=== PATIENT | female | born 1945 | race American Indian/Alaskan Native ===

== ENCOUNTER 2017-01-28 08:29 | Outpatient (CLI) | payer MEDICARE, OTHER ==
--- NOTE | 2017-01-28 09:09 | Mammography Report ---
Bilateral digital screening mammogram with CAD. Comparison study is dated January 12, 2016. Findings: The overall pattern is stable. A single biopsy clip is seen in the upper-outer right breast. Benign calcifications in the medial left breast are stable. No suspicious microcalcifications or architectural distortion. Impression: Stable benign findings. BI-RADS code: 2. Recommendation: Annual screening.
== END 2017-01-28 08:30 | disposition home or self-care (01) ==
LOC: MAMMO 08:29
PROVIDERS: ATTEND Family Medicine Adult Medicine
DX: Z12.31 Encounter for screening mammogram for malignant neoplasm of breast (principal)
CPT/HCPCS: 77067; G0202

== ENCOUNTER 2017-08-25 06:29 | Day surgery (SDC) | payer MEDICARE, OTHER ==
[2017-08-25] MEDS ORDERED: NACL 0.9% 500 ML 500 ML IV SCH (07:00)
[2017-08-25 07:34] LABS: Basophils % (Auto) 0.4 % (0.0-1.8); Eosinophils % (Auto) 0.8 % (0.0-4.3); Hematocrit 24.1 % (30.3-42.9); Hemoglobin 7.5 gm/dl (10.1-14.3); Mean Corpuscular HGB Conc 31 % (30-34); Platelet Count 340 K/mm3 (140-440); Red Blood Count 4.15 M/mm3 (3.65-5.03)
[2017-08-25 07:41] LABS: INR 0.99 (0.87-1.13)
[2017-08-25 07:44] LABS: Anion Gap 15 mmol/L; BUN/Creatinine Ratio 12; Blood Urea Nitrogen 7 mg/dL (7-17); Carbon Dioxide 30 mmol/L (22-30); Chloride 100.9 mmol/L (98-107); Glucose 124 mg/dL (65-100); Potassium 3.6 mmol/L (3.6-5.0); Sodium 142 mmol/L (137-145)
[2017-08-25 07:47] LABS: Mean Corpuscular Hemoglobin 18 pg (28-32); Mean Corpuscular Volume 58 fl (79-97); Red Cell Distribution Width 21.4 % (13.2-15.2)
[2017-08-25] MEDS ORDERED: XYLOCAINE 2% INFILTRATI ONE (08:33)
[2017-08-25] MEDS ORDERED: NITROGLYCERIN SYRINGE 3 ML ONE (08:33)
[2017-08-25] MEDS ORDERED: HEPARIN/NS 5000 UNIT/500ML(CATH LAB) 1,000 ML IR ONE (08:33)
[2017-08-25] MEDS ORDERED: CALAN ONE (08:33)
[2017-08-25] MEDS ORDERED: HEPARIN 10,000 UNITS/10 ML ONE (08:33)
[2017-08-25] MEDS ORDERED: SUBLIMAZE ONE (08:34)
[2017-08-25] MEDS ORDERED: VERSED ONE (08:34)
[2017-08-25] MEDS ORDERED: LASIX ONE (09:14)
--- NOTE | 2017-08-25 09:35 | Short Stay Summary ---
Short Stay Documentation Date of service: 08/25/17 - History H&P: obtained from office - Allergies and Medications Current Medications: Allergies codeine Adverse Reaction (Severe, Verified 08/25/17 07:09) DIZZINESS, DISORIENTED, Tegaderm Allergy (Intermediate, Uncoded 08/25/17 07:09) Rash Home Medications Medication Instructions Recorded Confirmed Last Taken Type Furosemide [Lasix TAB] 40 mg PO BID 06/22/15 08/25/17 08/24/17 History Lisinopril [Zestril TAB] 40 mg PO QDAY 06/22/15 08/25/17 08/24/17 History Timolol 0.5% [Timoptic] 1 drop OU QAM 06/22/15 08/25/17 08/24/17 History Aspirin EC [Aspirin Enteric Coated 325 mg PO QDAY 08/01/15 08/25/17 08/25/17 07: 20 History TAB] Atenolol [Tenormin] 50 mg PO DAILY 08/01/15 08/25/17 08/24/17 History ISOSORBIDE MONOnitrate [Imdur ER] 60 mg PO DAILY 08/01/15 08/25/17 08/24/17 History Potassium Chloride [Klor-Con M15] 20 meq PO BID 08/01/15 08/25/17 08/24/17 History AtorvaSTATin [Lipitor] 40 mg PO QHS 08/25/17 08/25/17 08/24/17 History Gabapentin [Neurontin] 300 mg PO HS 08/25/17 08/25/17 08/24/17 History Ranolazine ER [Ranexa ER] 500 mg PO BID 08/25/17 08/25/17 08/24/17 History Active Medications Sodium Chloride (Nacl 0.9% 500 Ml) 500 mls @ 50 mls/hr IV DIRECT MALCOM Stop: 08/25/17 16:59 Last Admin: 08/25/17 08:26 Dose: 50 mls/hr - Brief post op/procedure progress note Date of procedure: 08/25/17 Pre-op diagnosis: sob Post-op diagnosis: same Procedure: see report Anesthesia: local Estimated blood loss: none Pathology: none - Disposition Condition at discharge: Good Disposition: DC-01 TO HOME OR SELFCARE - Discharge Diagnoses (1) Anemia Status: Acute Qualifiers: Anemia type: iron deficiency Iron deficiency anemia type: chronic blood loss Qualified Code(s): D50.0 - Iron deficiency anemia secondary to blood loss (chronic) (2) CAD (coronary artery disease) Status: Chronic Qualifiers: Coronary Disease-Associated Artery/Lesion type: [place] artery [place] vs. transplanted heart: [place] heart Associated angina: with stable angina Qualified Code(s): I25.118 - Atherosclerotic heart disease of [place] coronary artery with other forms of angina pectoris (3) Hyperlipemia Status: Chronic (4) Hypertension Status: Chronic Qualifiers: Hypertension type: essential hypertension Qualified Code(s): I10 - Essential (primary) hypertension (5) SOB (shortness of breath) Status: Chronic Short Stay Discharge Plan Activity: advance as tolerated Diet: low fat, low cholesterol, low salt Wound: keep clean and dry Follow up with: ALYSSA REDDING MD [Primary Care Provider] - 7 Days
--- NOTE | 2017-08-25 12:58 | Cardiac Catherization Report ---
LEFT HEART CATHETERIZATION ORDERING PHYSICIAN: ____. PRIMARY CARE PHYSICIAN: Dr. Salty Anaya. CLINICAL INFORMATION: A 72-year-old female with obesity, hypertension, ____ persistent fatigue with exertion and had a stress test showed mild ischemia with normal LV function. The patient has a history of coronary artery disease with nondominant but medium caliber RCA ostial 50%-60% by IVUS and left system was patent. She is here for left heart catheterization. Left heart catheterization performed via the right radial artery, sterile technique, local anesthesia, 6-Citizen [place] radial sheath inserted. PROCEDURE FINDINGS: Left system engaged with JL3.5 catheter. Left main is large and patent, bifurcates to large LAD that is patent proximally, it is wrapped around LAD. Diagonal 1 is a medium caliber vessel, it is patent. Circumflex is a large dominant vessel, is patent proximally and distally. OM1, OM2 are medium caliber vessels that are patent. Left posterior descending is a medium caliber vessel, it is patent. RCA engaged with JR4 has an ostial 50%-60% lesion on angiography with no catheter dampening of a nondominant but a medium caliber vessel, is patent. LV gram done in [place] and [place] view shows normal LV function, EF 55%-60%, LVEDP of 35-40 mmHg. LV was 165. Aortic is 160/75. No gradient across the aortic valve on pullback. 5-Citizen [place] catheters were taken over guidewire, 6-[place]izen [place] radial sheath was discontinued. Radial dressing applied. No hematoma, no bleeding. SUMMARY: 1. Left main patent, LAD patent, circ patent, dominant vessel. OM1, OM2 patent. RCA is a nondominant but medium caliber ostial 50%-60% of a medium caliber vessel, no angiographic change from 2015. 2. Normal LV function, but elevated left end-diastolic pressure 35-40 mmHg. We will follow up with PCP for management, possible diastolic dysfunction. 3. The patient was also anemic. The patient will follow up with PCP for anemia workup, started on therapy. Discussed in detail with the patient and the patient's family. JOB# [id number] KELSI/FAHAD
[2017-08-25 14:02] VITALS: BP 119/47
== END 2017-08-25 14:15 | disposition home or self-care (01) ==
LOC: CATHLABREC 06:29
PROVIDERS: ATTEND Internal Medicine
DX: I11.0 Hypertensive heart disease with heart failure (principal); I50.32 Chronic diastolic (congestive) heart failure; I25.10 Atherosclerotic heart disease of native coronary artery without angina pectoris; I35.0 Nonrheumatic aortic (valve) stenosis; G47.33 Obstructive sleep apnea (adult) (pediatric); D64.9 Anemia, unspecified; E78.5 Hyperlipidemia, unspecified; E66.9 Obesity, unspecified; Z99.89 Dependence on other enabling machines and devices; Z79.82 Long term (current) use of aspirin; Z91.048 Other nonmedicinal substance allergy status; Z90.710 Acquired absence of both cervix and uterus; Z88.5 Allergy status to narcotic agent; Z82.49 Family history of ischemic heart disease and other diseases of the circulatory system; Z68.41 Body mass index [BMI] 40.0-44.9, adult
CPT/HCPCS: 36415; 80048; 85025; 85610; 85730; 93005; 93010; 93458; 99156; C1894; J1644; J2250; J3010; J7040; J1940; Q9967

== ENCOUNTER 2018-01-29 09:12 | Outpatient (CLI) | payer MEDICARE, OTHER ==
--- NOTE | 2018-01-29 10:59 | Mammography Report ---
BILATERAL MAMMOGRAM: FINDINGS: There are scattered fibroglandular densities (approximately 25%-50% glandular). No distortion, suspicious mass, calcification, or skin change is seen. Biopsy marker and a right upper outer breast nodule. Focal collection of secretory calcifications in the inferomedial left breast. No interval change compared to January 2017. CAD was utilized. IMPRESSION: Negative mammogram. There is no mammographic evidence of malignancy. RECOMMENDATION: Follow-up per ACS guidelines. BI-RADS CATEGORY: 1 = Negative ACR BI-RADS MAMMOGRAPHIC CODES: 0 = Needs additional imaging evaluation; 1 = Negative; 2 = Benign; 3 = Probably benign; 4 = Suspicious; 5 = Malignant; 6 = Known biopsy-proven malignancy COMMENT: 1. Dense breast tissue, i.e., adenosis, fibrocystic changes, etc., may obscure an underlying neoplasm. 2. Approximately 10% of cancers are not detected with mammography. 3. A negative mammography report should not delay biopsy if a clinically suspicious mass is present. COMMENT: Patient follow-up letters are generated in [employer].
== END 2018-01-29 09:13 | disposition home or self-care (01) ==
LOC: MAMMO 09:12
PROVIDERS: ATTEND Family Medicine Adult Medicine
DX: Z12.31 Encounter for screening mammogram for malignant neoplasm of breast (principal)
CPT/HCPCS: 77067

== ENCOUNTER 2019-03-29 08:44 | Outpatient (CLI) | payer MEDICARE ==
--- NOTE | 2019-03-29 10:18 | Mammography Report ---
DIGITAL SCREENING MAMMOGRAM WITH CAD INDICATION: Routine screening mammography. TECHNIQUE: Digital bilateral 2D mammography was obtained in the craniocaudal and mediolateral obliq ue projections. This examination was interpreted with the benefit of Computer-Aided Detection analysi s. COMPARISON: 01/29/2018 FINDINGS: Breast Density: The breasts are heterogeneously dense, which may obscure small masses. There is no evidence of dominant mass, suspicious calcifications or architectural distortion in eith er breast. A right outer biopsy clip. Left lower inner benign secretory calcifications. IMPRESSION: BI-RADS Category 2: Benign. No mammographic evidence of malignancy. Recommend routine screening ma mmography in one year. A "normal" or negative report should not discourage follow up or biopsy of a clinically significant f inding. A written summary of these findings will be mailed to the patient. The patient will be entered into a mammography reporting system which will generate a reminder letter for the patient's next appointmen t at the appropriate interval. The [employer] recommends yearly mammograms starting at age 40 and continuing as l mikey as a woman is in good health. Breast MRI is recommended for women with an approximate 20-25% or greater lifetime risk of breast cancer, including women with a strong family history of breast or ova joesph cancer or who have been treated for Hodgkin's disease. Signer Name: Mario Bowman MD Signed: 03/29/2019 10:14 AM Workstation Name: [id number]
== END 2019-03-29 08:45 | disposition home or self-care (01) ==
LOC: MAMMO 08:44
PROVIDERS: ATTEND Family Medicine Adult Medicine
DX: Z12.31 Encounter for screening mammogram for malignant neoplasm of breast (principal); I11.0 Hypertensive heart disease with heart failure; I50.9 Heart failure, unspecified; E78.00 Pure hypercholesterolemia, unspecified; Z90.710 Acquired absence of both cervix and uterus
CPT/HCPCS: 77067